=== PATIENT | male | born 1960 | race Caucasian/White ===

== ENCOUNTER 2024-07-17 00:28 | Emergency (ER) | payer OTHER, SELFPAY ==
[2024-07-17 00:28] VITALS: BMI 27.1
[2024-07-17 00:39] VITALS: BP 147/77; PULSE 87; RESP 18; TEMP 36.8; O2SAT 97
--- NOTE | 2024-07-17 00:43 | PD.EDRME ---
Rapid Medical Screening Exam RME Arrival date/time: 07/17/24 00:28 64 yo m present to ED for c/o of syncope, head injury today I have greeted and performed a focused initial assessment of this patient. A comprehensive ED assessment and evaluation of the patient, analysis of all test results, and completion of the medical decision making process will be conducted by additional ED providers. Chief Complaint: Fall Time Seen by Provider: 07/17/24 00:31 Vital signs: Vital Signs Temperature 98.3 F 07/17/24 00:39 Pulse Rate 87 07/17/24 00:39 Respiratory Rate 18 07/17/24 00:39 Blood Pressure 147/77 H 07/17/24 00:39 Pulse Oximetry (%) 97 07/17/24 00:39 Oxygen Delivery Method Room Air 07/17/24 00:39
--- NOTE | 2024-07-17 00:44 | XR_ITS ---
Examination: CT brain head without contrast. 2-D sagittal coronal reconstructions Date and time of exam:July 17, 2024 0241 hrs. Indications: Ground-level fall today with laceration to the forehead and pain CTDI: vol (mGy):55.7 DLP: (mGycm):1155 Technique: Multiple CT axial sections of the brain have been obtained, 5 mm slice thickness. Contrast has not been administered. 2-D sagittal, coronal reconstructions have been obtained Low dose protocols were performed. One or more of the following dose reduction techniques were used; automated exposure control, adjustment of the mA and/or KV according to patient size, use of iterative reconstruction technique. Findings: No significant ventricular enlargement. Intra-axial or extra-axial hemorrhage density is not seen. No mass effect or midline shift Basal cisterns are not remarkable. Fourth ventricle is midline. Cranial vault intact. Forehead soft tissue scalp swelling and air densities Impression: Negative for acute hemorrhage, mass effect or midline shift
--- NOTE | 2024-07-17 00:44 | EKG_ITS ---
[facility] Test Date: 2024-07-17 Pat Name: XAVIER BALL Department: Room: - Gender: Male Manager Fleet: : [id number] Requested By: Nba Torres Order Number: [id number] Reading MD: Nba Torres Measurements Intervals [place] Rate: 87 P: 70 OK: 188 QRS: -6 QRSD: 114 T: 48 QT: 383 QTc: 462 Interpretive Statements SINUS RHYTHM INCOMPLETE RIGHT BUNDLE BRANCH BLOCK [90+ ms QRS DURATION, TERMINAL R IN V1/V2, 40+ ms S IN I/aVL/V4/V5/V6] No previous ECG available for comparison /store/S0/[id number].pdf
--- NOTE | 2024-07-17 00:44 | XR_ITS ---
Examination: CT cervical spine without contrast 2-D sagittal reconstructions 2-D coronal reconstructions 3-D reconstructions. Exam date and time:July 17, 2024 0241 hrs. Indications: Ground-level fall today with injury to the neck, neck pain CTDI:vol (mGy) 8.94 DLP: (mGycm) 213 Technique: Multiple 2 mm axial sections of the cervical spine have been obtained. The coronal and sagittal reconstructions have been obtained. 3-D reconstructions have been obtained. Low dose protocols were performed. One or more of the following dose reduction techniques were used; automated exposure control, adjustment of the mA and/or KV according to patient size, use of iterative reconstruction technique. Findings: Axial sections demonstrate intact base of the skull. C1 exhibit satisfactory relationship to the odontoid. No acute cervical vertebral body fracture seen. Alignment posterior spinous processes satisfactory. Impression: No acute cervical fracture.
[2024-07-17 01:12] LABS: Basophils % (Auto) 1 % (0-2.5); Eosinophils # (Auto) 0.1 Thou/mm3 (0.0-0.5); Eosinophils % (Auto) 2 % (0-10); Hematocrit 38.7 % (41.0-53.0); Hemoglobin 13.6 g/dL (13.5-16.0); Immature Granulocytes % (Auto) 0 % (0-0); Immature Granulocytes Auto 0.02 Thou/mm3 (0.00-0.00); Lymphocytes # (Auto) 2.5 Thou/mm3 (1.0-4.8); Lymphocytes % (Auto) 41 % (10-50); Mean Corpuscular HGB Conc 35.1 g/dl (31.0-37.0); Mean Corpuscular Hemoglobin 34.3 pg (25.0-35.0); Mean Corpuscular Volume 98 fL (80-100); Monocytes # (Auto) 0.5 Thou/mm3 (0.0-0.8); Monocytes % (Auto) 8 % (0-12); Neutrophils % (Auto) 49 % (37-80); Nucleated Red Blood Cell % 0 /100 WBC (0); Platelet Count 187 Thou/mm3 (140-440); RDW Standard Deviation 43.5 fL (35.1-43.9); Red Blood Count 3.97 Miln/mm3 (4.50-5.90); White Blood Count 6.1 Thou/mm3 (3.8-10.6)
[2024-07-17 01:26] LABS: Prothrombin Time 10.8 Seconds (9.0-12.2)
[2024-07-17 01:41] LABS: Alanine Aminotransferase 32 U/L (10-49); Albumin, Serum 4.5 gm/dL (3.4-4.8); Albumin/Globulin Ratio 1.9 (1.2-2.2); Alkaline Phosphatase 57 U/L (46-116); Anion Gap 10 (7-16); Aspartate Amino Transferase 33 U/L (0-34); BUN/Creatinine Ratio 15 Ratio (12-20); Bilirubin,Total 0.5 mg/dL (0.3-1.2); Blood Urea Nitrogen 16 mg/dL (9-23); Calcium 9.1 mg/dL (8.3-10.6); Calcium (Corrected) 9.1 mg/dL (8.5-10.1); Carbon Dioxide 25.1 mMol/L (20.0-31.0); Chloride 102 mMol/L (98-107); Creatinine (Component) 1.1 mg/dL (0.6-1.3); Estimated Creatinine Clearance 72.3 mL/min (>60); Globulin 2.4 gm/dL (2.3-3.5); Glucose 145 mg/dL (74-106); Lipase 57 U/L (12-53); Magnesium 1.9 mg/dL (1.6-2.6); Osmolality,Calculated 278 (275-295); Potassium 3.4 mMol/L (3.4-5.1); Sodium 137 mMol/L (136-145); Total Protein 6.9 gm/dL (5.7-8.2); Troponin I < 0.020 ng/mL (0.0-0.045); eGFR > 60 See Note
[2024-07-17 01:49] VITALS: BP 143/79; PULSE 81; RESP 17; TEMP 37; O2SAT 100
--- NOTE | 2024-07-17 03:34 | PRELIM_ITS ---
CT scan of the head without intravenous contrast (axial sections with sagittal and coronal reformats) July 17, 2024 0241 hours Clinical History: Head injury Comparison: No prior study is available for comparison. Findings: There is no evidence of intracranial hemorrhage, mass effect or midline shift. There is mild volume loss. The calvarium is intact. The mastoid air cells and the visualized paranasal sinuses are clear. There is a small midline frontal scalp contusion. Impression: 1. No evidence of intracranial hemorrhage, midline shift or calvarial fracture. 2. Midline frontal scalp contusion. 3. Other findings as described above. Suggest clinical correlation and follow up accordingly. Report Electronically Signed By: Prem Izaguirre 07/17/2024 3:33:50 AM [EST]
--- NOTE | 2024-07-17 03:34 | PRELIM_ITS ---
CT scan of the cervical spine without intravenous contrast (axial sections with sagittal and coronal reformats) July 17, 2024 0241 hours Clinical History: Distracting injury Comparison: No prior study is available for comparison. Findings: There is no evidence of acute fracture or traumatic subluxation. There is straightening of the cervical lordosis, which may be due to muscle spasm or positioning. There are multilevel degenerative changes in the form of marginal osteophytes, decreased disc height, uncinate process and facet arthrosis, most prominent at C5-C6 level. The prevertebral soft tissues are unremarkable. Impression: No evidence of acute fracture or traumatic subluxation. Degenerative changes as described above. Suggest clinical correlation and follow up accordingly. Report Electronically Signed By: Prem Izaguirre 07/17/2024 3:34:25 AM [EST]
--- NOTE | 2024-07-17 06:36 | PD.EDSYNC ---
ED Syncope RME/HPI General Chief Complaint: Fall Stated Complaint: LAC TO FOREHEAD AFTER FALL Time Seen by Provider: 07/17/24 00:31 Arrival date/time: 07/17/24 00:28 RME / HPI RME / HPI narrative: 07/17/24 00:28 64 yo m present to ED for c/o of syncope, head injury today I have greeted and performed a focused initial assessment of this patient. A comprehensive ED assessment and evaluation of the patient, analysis of all test results, and completion of the medical decision making process will be conducted by additional ED providers. DR. SHEN MAIN ED EVALUATION: 64 year old male presents to the Emergency Department accompanied by his with complaints of syncope; he has a mid forehead laceration after he hit his head on the floor and lost consciousness. Denies any other injuries. PMHx: Hypertension Social Hx: No tobacco, alcohol, or substance use. Related Data Allergies Allergy/AdvReac Type Severity Reaction Status Date / Time No Known Allergies Allergy Verified 05/14/23 09:41 Review of Systems Review of Systems Systems Reviewed: All systems reviewed, normal except as documented Past Medical History Past Medical History CARDIAC: Positive Cardiac Disorders and Hypertension Social History SMOKING STATUS: Never smoker SUBSTANCE USE: does not use ALCOHOL: Never ED Exam Narrative Physical exam: GENERAL APPEARANCE: alert and oriented x 4, well-developed, well-nourished, no acute distress VITALS: All vitals were reviewed and the pulse ox is 99% on room air, which is normal according to my interpretation. HEENT: Normocephalic, atraumatic; pupils equal, round, reactive to light; EOMI; mucous membranes pink, moist; oropharynx clear NECK: Supple LUNGS: CTABL; no wheezes, no rales, no rhonchi HEART: Regular rate, regular rhythm; normal S1, S2; no murmurs ABDOMEN: non distended; normal BS; soft, no tenderness, no guarding, no rebound; no masses, no organomegaly, no hernia BACK: no CVA tenderness EXTREMITIES: atraumatic; no edema NEUROLOGIC: awake; alert and oriented x4; cranial nerves II-XII grossly intact; no focal sensory or motor deficits PSYCHIATRIC: appropriate mood and affect SKIN: warm, dry, normal color; no rashes Expanded Head Exam Head image:  1. Irregular, curved laceration, measuring about 2.5 cm, to the mid forehead area. Course Quality Measures none Orders Category Date Time Status EKG (ED ONLY) *Do not use* NOW Care 07/17/24 00:[address] cervical spine wo con Stat Exams 07/17/24 00:[address] head/brain wo con Stat Exams 07/17/24 00:44 Completed EKG (ED Only) Stat Exams 07/17/24 00:44 Draft CBC Stat Lab 07/17/24 01:00 Completed CMP [Comprehensive Metabolic Panel] Stat Lab 07/17/24 01:00 Completed INR [Prothrombin Time with INR] Stat Lab 07/17/24 01:00 Completed Lipase Stat Lab 07/17/24 01:00 Completed Mag [Magnesium] Stat Lab 07/17/24 01:00 Completed Troponin I Stat Lab 07/17/24 01:00 Completed Lidocaine 1% 20 ml [Xylocaine 1% 20 ML] Med 07/17/24 06:43 Discontinued 10 ml INFL X1 ONE Vital Signs Vital signs: Vital Signs Temperature 98.3 F 07/17/24 00:39 Pulse Rate 87 07/17/24 00:39 Respiratory Rate 18 07/17/24 00:39 Blood Pressure 147/77 H 07/17/24 00:39 Pulse Oximetry (%) 97 07/17/24 00:39 Oxygen Delivery Method Room Air 07/17/24 00:39 Procedures -ED Laceration Laceration 1: Site: face (mid forehead area (see physical exam for details)) Size (cm): 2.5 Description: irregular (curved, very irregular) Depth: simple, single layer Local Anesthetic: lidocaine 1% Amount of anesthesia used (mL): 4 Pre-repair: wound explored, irrigated extensively and deep structures intact Size (cm): 4-0 (6) and 5-0 (4) Number of sutures: 10 Technique: simple, interrupted Syncope MDM Narrative MDM Narrative:: Claudia South am scribing for and in the presence of Dr. Shen. Patient data External records reviewed:: [facility] previous records (Reviewed last ED visit dated 05/21/22, discharged with the following: Palpitations) Clinical information provided by:: patient Social determinants that could affect healthcare access:: none Patient has the following chronic illnesses:: Hypertension How is presenting disease/condition affected by chronic disease/condition?: uneffected by Evaluation data The following diagnostics were reviewed and interpreted by me:: lab results, radiology exam(s) and EKG tracing(s) (EKG#1: EKG at 0047 hours. Interpreted by me: sinus rhythm, rate 87, no acute ischemic changes) Lab and/or radiology exams considered but not ordered:: none Interpretation Summary: Procedure(s): CT head/brain wo con Accession Number(s): [id number] cc: Red Walker MD; NO PRIMARY/FAMILY,PHYSICIAN; bNa Liu PA-C~ Examination: CT brain head without contrast. 2-D sagittal coronal reconstructions Date and time of exam:July 17, 2024 0241 hrs. Indications: Ground-level fall today with laceration to the forehead and pain CTDI: vol (mGy):55.7 DLP: (mGycm):1155 Technique: Multiple CT axial sections of the brain have been obtained, 5 mm slice thickness. Contrast has not been administered. 2-D sagittal, coronal reconstructions have been obtained Low dose protocols were performed. One or more of the following dose reduction techniques were used; automated exposure control, adjustment of the mA and/or KV according to patient size, use of iterative reconstruction technique. Findings: No significant ventricular enlargement. Intra-axial or extra-axial hemorrhage density is not seen. No mass effect or midline shift Basal cisterns are not remarkable. Fourth ventricle is midline. Cranial vault intact. Forehead soft tissue scalp swelling and air densities Impression: Negative for acute hemorrhage, mass effect or midline shift Dictated By: Red Walker MD Procedure(s): CT cervical spine wo con Accession Number(s): [id number] cc: Red Walker MD; NO PRIMARY/FAMILY,PHYSICIAN; Nba Liu PA-C~ Examination: CT cervical spine without contrast 2-D sagittal reconstructions 2-D coronal reconstructions 3-D reconstructions. Exam date and time:July 17, 2024 0241 hrs. Indications: Ground-level fall today with injury to the neck, neck pain CTDI:vol (mGy) 8.94 DLP: (mGycm) 213 Technique: Multiple 2 mm axial sections of the cervical spine have been obtained. The coronal and sagittal reconstructions have been obtained. 3-D reconstructions have been obtained. Low dose protocols were performed. One or more of the following dose reduction techniques were used; automated exposure control, adjustment of the mA and/or KV according to patient size, use of iterative reconstruction technique. Findings: Axial sections demonstrate intact base of the skull. C1 exhibit satisfactory relationship to the odontoid. No acute cervical vertebral body fracture seen. Alignment posterior spinous processes satisfactory. Impression: No acute cervical fracture. Dictated By: Red Walker MD Medications / Prescriptions Medications or Prescriptions considered but not ordered:: none Medication administrations:: Medication Administration History Discontinued Medications Lidocaine HCl (Lidocaine Hcl 1% 20 Ml Vial) 10 ml INFL X1 ONE Stop: 07/17/24 06:44 Last Admin: 07/17/24 06:56 Dose: 10 ml Documented By: RUDY Comments: given to see above Consultations Consultation(s) initiated? (list below): No Diagnosis Syncope Differential Diagnosis: vasovagal syncope, subarachnoid hemorrhage and dehydration Most likely diagnosis given after review of the tests above:: Syncope Complex laceration of forehead Admission Indicated Admission indicated?: not indicated Admission Request Was there a request for admission?: No Disposition Plan Disposition Plan: Discharge Discharge Attestation Discharge Attestation: The patient and all family members were given an opportunity to ask questions and understood the discharge instructions. Discharge instructions specifically effects, indications for sooner follow up or return to the emergency department, and the expected course of current diagnosis. Patient condition: Stable Discharge Plan Plan Patient Disposition: HOME (Self Care) Prescriptions/Referrals Referrals: No Primary/Family,Physician [Primary Care Provider] - In 1 week Problem List Clinical Impression: Syncope, Complex laceration of forehead Patient/Caregiver Discharge Instructions Education Materials: ED Head Injury (Adult), ED Laceration, Face: Stitches or Tape Additional Instructions: Follow up in 1-2 days for wound recheck. Follow up within 5 days for suture removal or according to recommendations on recheck. Print Language: Upper Sorbian Stand Alone Forms: Eryn Award Info., Patient Portal Info Letter
[2024-07-17 06:48] VITALS: BP 139/77; PULSE 81; RESP 19; TEMP 37; O2SAT 99
[2024-07-17] MEDS: LIDOCAINE HCL 1% 20 ML VIAL 10 ML INFL (06:56)
[2024-07-17 08:13] VITALS: BP 134/81; PULSE 68; RESP 16; O2SAT 96
== END 2024-07-17 08:14 | disposition home or self-care (01) ==
PROVIDERS: Physician Assistant; Emergency Provider Emergency Medicine
DX: S01.81XA Laceration without foreign body of other part of head, initial encounter (principal); W19.XXXA Unspecified fall, initial encounter
CPT/HCPCS: 12011; 36415; 70450; 72125; 80053; 83690; 83735; 84484; 85025; 85610; 93005; 99284; J3490